=== PATIENT | male | born 1995 ===

== ENCOUNTER 2020-02-16 11:25 | Outpatient (CLI) | payer MEDICAID, SELFPAY ==
[2020-02-18 09:03] LABS: SARS-CoV-2 RNA Undetected (Undetected); SARS-CoV-2 Specimen Source Nasopharynx
== END 2020-02-16 11:45 ==
PROVIDERS: PCP Physician Assistant Medical; Visit Provider Family Medicine
DX: Z11.59 Encounter for screening for other viral diseases (principal)
CPT/HCPCS: U0003